=== PATIENT | male | born 1985 ===

== ENCOUNTER 2022-08-27 17:51 | Emergency (ER) | payer OTHER, MEDICAID, SELFPAY ==
[2022-08-27 18:20] VITALS: BP 140/94; PULSE 87; RESP 18; TEMP 37.1; O2SAT 98
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
[2022-08-27 21:10] VITALS: BP 129/85; PULSE 79; RESP 18; O2SAT 98
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
[2022-08-27 22:29] VITALS: BP 114/75; PULSE 75; RESP 18; O2SAT 98
== END 2022-08-27 22:32 | disposition home or self-care (01) ==
PROVIDERS: Emergency Provider Emergency Medicine
DX: S63.501A Unspecified sprain of right wrist, initial encounter (principal); M62.830 Muscle spasm of back; V89.2XXA Person injured in unspecified motor-vehicle accident, traffic, initial encounter
CPT/HCPCS: 72100; 73110; 99283